=== PATIENT | female | born 1965 | race Caucasian/White ===

== ENCOUNTER 2023-03-11 01:56 | Outpatient (CLI) | payer BC, SELFPAY ==
--- NOTE | 2023-03-11 07:15 | DI.MRI_ITS ---
Exam(s) MR UPPER JOINT LT WO EXAM: MR UPPER JOINT LT WO CLINICAL HISTORY: biceps tendinitis,m75.20,eval for biceps tendon rupture TECHNIQUE: Multiplanar multisequence MRI was performed without intravenous contrast. COMPARISON: No exams were available for comparison FINDINGS: The biceps insertion site on the proximal radius is not included on these images. BONES/JOINTS: No fracture or contusion pattern. No bone lesions identified. MUSCULOTENDINOUS STRUCTURES: The muscles show normal signal and size. No muscular fatty atrophy. The visualized biceps tendon appears unremarkable. SOFT TISSUES: There is mild edema seen in the soft tissues posterior to the olecranon. OTHER FINDINGS: None. IMPRESSION: 1. The biceps tendon insertion site on the proximal radius is not included on this examination. The patient should return at their convenience and no additional expense for completion of the examinatio n. 2. The visualized portions of the biceps tendon are unremarkable. 3. Mild edema in the soft tissues posterior to the olecranon. DATA REPOSITORY:
== END 2023-03-11 02:16 ==
LOC: DI 01:56
PROVIDERS: Visit Provider Nurse Practitioner Family
DX: M75.22 Bicipital tendinitis, left shoulder (principal)
CPT/HCPCS: 73221

== ENCOUNTER 2023-03-23 10:52 | Outpatient (CLI) | payer BC, SELFPAY ==
--- NOTE | 2023-03-23 10:00 | DI.RAD_ITS ---
Exam(s) XR SHOULDER LT COMPLETE 2+V EXAM: XR SHOULDER LT COMPLETE 2+V CLINICAL HISTORY: Left shoulder pain. TECHNIQUE: 2D digital imaging was performed. Two views. COMPARISON: No exams were available for comparison FINDINGS: BONES: No acute fracture is present. No bony destructive lesion is seen. Spurring at the undersurfac e of the acromion. JOINTS: No dislocation present. Minimal spurring at the glenoid. No spurring at AC joint. SOFT TISSUE: Normal. IMPRESSION: Mild degenerative changes. DATA REPOSITORY: RADIATION DOSE DELIVERED:
== END 2023-03-23 10:53 | disposition home or self-care (01) ==
LOC: DIORS 10:52
PROVIDERS: Visit Provider Student in an Organized Health Care Education/Training Program
DX: M19.012 Primary osteoarthritis, left shoulder (principal)
CPT/HCPCS: 73030

== ENCOUNTER 2024-02-28 18:16 | Outpatient (REF) | payer BC, SELFPAY ==
[2024-02-28 16:16] LABS: Bilirubin Negative (Negative); Blood Negative (Negative); Clarity Clear (Clear); Glucose Negative (Negative); Ketones Negative (Negative); Leukocyte Esterase Trace (Negative); Nitrite Negative (Negative); Specific Gravity 1.015 (1.005-1.025); Urobilinogen 0.2 mg/dL (Up to 0.2); pH 5.5 (5-8)
[2024-02-28 16:41] LABS: Bacteria Rare HPF (Negative); C & S Indicated? No; Crystals Negative HPF (Negative); Epithelial Cells Moderate HPF (Negative); Mucus Negative (Negative); RBC 0-2 HPF (0-2)
== END 2024-02-28 18:17 | disposition home or self-care (01) ==
LOC: LBN 18:16
PROVIDERS: PCP Nurse Practitioner Family; Visit Provider Nurse Practitioner Family
DX: R30.0 Dysuria (principal); N39.0 Urinary tract infection, site not specified
CPT/HCPCS: 81003; 81015

== ENCOUNTER 2024-05-19 12:11 | Outpatient (REF) | payer BC, SELFPAY ==
[2024-05-19 21:15] LABS: Bilirubin Negative (Negative); Blood Negative (Negative); Clarity Clear (Clear); Glucose Negative (Negative); Ketones Negative (Negative); Leukocyte Esterase Small (Negative); Nitrite Negative (Negative); Specific Gravity 1.015 (1.005-1.025); Urobilinogen 0.2 mg/dL (Up to 0.2); pH 5.5 (5-8)
[2024-05-19 21:32] LABS: Bacteria Few HPF (Negative); Casts Negative LPF (Negative); Crystals Negative HPF (Negative); Epithelial Cells Many HPF (Negative); Mucus Negative (Negative); RBC Negative HPF (0-2)
[2024-05-19 21:33] LABS: C & S Indicated? No/Sq. Contamination
== END 2024-05-19 12:12 | disposition home or self-care (01) ==
LOC: LBN 12:11
PROVIDERS: Visit Provider Nurse Practitioner Family
DX: N89.8 Other specified noninflammatory disorders of vagina (principal)
CPT/HCPCS: 81003; 81015; 87480; 87510; 87660